=== PATIENT | female | born 1965 | race Two or more races ===

== ENCOUNTER 2016-12-01 09:16 | Outpatient (CLI) | payer OTHER ==
[2016-12-01 10:15] LABS: URINE BILIRUBIN NEGATIVE (NEGATIVE); URINE BLOOD NEGATIVE (NEGATIVE); URINE COLOR YELLOW; URINE GLUCOSE (UA) NEGATIVE (NEGATIVE); URINE KETONE NEGATIVE (NEGATIVE); URINE PH 7.5; URINE PROTEIN NEGATIVE (NEGATIVE); URINE UROBILINOGEN 0.2 E.U./dL (0.2 - 1.0)
[2016-12-01 10:17] LABS: URINE BACTERIA NONE SEEN /hpf (NONE SEEN); URINE EPITHELIAL CELLS RARE /lpf (FEW); URINE RBC NONE SEEN /hpf (0-5); URINE WBC NONE SEEN /hpf (0-5)
[2016-12-01] MEDS ORDERED: IOHEXOL 300MG/ML 100 ML VIAL IVP ONE (10:23)
[2016-12-01 10:25] LABS: % BASOPHILS 0.4 % (0.0-2.0); % EOSINOPHILS 2.4 % (0.0-5.0); % LYMPHOCYTES 32.9 % (20.0-50.0); % MONOCYTES 7.9 % (2.0-10.0); % NEUTROPHILS 56.4 % (40.0-80.0); HEMATOCRIT 42.2 % (35.0-45.0); HEMOGLOBIN 13.6 gm/dL (11.7-15.5); MEAN CELL VOLUME 73.8 fl (81-100); MEAN CORPUSCULAR HEMOGLOBIN 23.7 pg (27.0-31.0); MEAN CORPUSCULAR HGB CONC 32.1 pg (28.0-36.0); MEAN PLATELET VOLUME 9.3 fl; NEUTROPHILE ABSOLUTE 3.8 Th/cmm (1.8-8.0); PLATELET COUNT 312 Th/cmm (150-400); RED BLOOD COUNT 5.72 Mil/cmm (3.80-5.10); RED CELL DISTRIBUTION WIDTH 13.4 % (11.5-20.0); WHITE BLOOD COUNT 6.7 Th/cmm (4.8-10.8)
[2016-12-01 10:52] LABS: ALB/GLOB RATIO 1.3 (1.0-1.8); ALKALINE PHOSPHATASE 104 U/L (34-104); ANION GAP 7.4 (7.0-16.0); BILIRUBIN,TOTAL 0.5 mg/dL (0.3-1.0); BUN - UREA NITROGEN 8 mg/dL (7-25); BUN/CREATININE RATIO 13.3; CALCIUM SERUM 10.4 mg/dL (8.6-10.3); CARBON DIOXIDE 26.3 mEq/L (21.0-31.0); CHLORIDE 105 mEq/L (98-107); CHOLESTEROL 168 mg/dL (<200); CREATININE - SERUM 0.6 mg/dL (0.6-1.2); GLUCOSE 98 mg/dL (70-105); POTASSIUM SERUM 3.7 mEq/L (3.5-5.1); SGOT 22 U/L (13-39); SGPT/ALT 19 U/L (7-52); SODIUM SERUM 135 mEq/L (136-145); TRIGLYCERIDES 147 mg/dL (<150)
[2016-12-01 11:04] LABS: T4 TOTAL 10.04 ug/dl (6.09-12.23)
[2016-12-01 11:14] LABS: T3 (TRIIDOTHYRONNE) 1.22 ng/mL (0.87-1.78)
--- NOTE | 2016-12-01 11:42 | Diagnostic Imaging Report ---
CT abdomen and pelvis without and with intravenous contrast Indication: Abdominal pain radiating to the back Comparison: None, Technique: Axial images were obtained from the lung bases to the bilateral proximal femurs before and following administration of IV contrast. Coronal reconstructions were made. total DLP: 869, CTDI 16.6 FINDINGS: Hypoventilatory changes of the lung bases are noted. No evidence of focal hepatic lesions. Borderline prominent liver is noted. No radiopaque gallstones identified. No focal splenic, pancreatic, or adrenal lesions. No evidence of hydronephrosis or nephrolithiasis. No focal renal lesions identified. There is moderate amount of stool throughout the colon. No evidence of acute appendicitis. 1.3 cm right adnexal cyst is noted. No evidence of free fluid or free air. Mild atherosclerosis is noted. Mild degenerative changes of the spine are noted. IMPRESSION: No evidence of hydronephrosis or nephrolithiasis. No evidence of free fluid. No evidence of bowel obstruction. 1.3 cm right adnexal cyst. Consider follow-up ultrasound if indicated. Borderline prominent liver. Mild atherosclerosis.
--- NOTE | 2016-12-01 11:43 | Diagnostic Imaging Report ---
Ultrasound abdomen HISTORY: Renal stone COMPARISON: CT abdomen and pelvis the same day Technique: Sonography of the abdomen was performed in multiple planes. FINDINGS: The liver demonstrates mild increased echogenicity with no evidence of focal lesions. The liver measures 17.4 cm. No evidence of gallstones or gallbladder wall thickening. The common bile duct measures 5 mm. Evaluation of the pancreas is limited due to bowel gas. The right kidney measures 11.5 cm. No evidence of focal lesions or hydronephrosis. The left kidney measures 11.2 cm. There is fullness of the left renal collecting system without evidence of wale hydronephrosis. No evidence of focal lesions. The spleen measures 8.7 cm. IMPRESSION: Fullness of the left renal collecting system without evidence of wale hydronephrosis. No evidence of renal stones. Please refer to follow-up CT the same day for further details. Borderline prominent liver with mild increased echogenicity which may be due to fatty infiltration, correlate with clinical findings.
--- NOTE | 2016-12-01 13:34 | Diagnostic Imaging Report ---
Ultrasound pelvis HISTORY: Pain. History of right ovarian cyst. Patient is postmenopausal. COMPARISON: CT abdomen and pelvis the same day Technique: Longitudinal and transverse sonographic sector images of the pelvis were obtained transabdominally and transvaginally. FINDINGS: Exam is limited due to bowel gas. The uterus measures 7.1 x 2.9 x 4.3 cm. The endometrium measures 5 mm. The ovaries were not visualized. The prior stated small right adnexal cyst described on recent CT examination was not identified sonographically. The post void residual bladder volume is 62 mL. IMPRESSION: The endometrium measures 5 mm. Clinical correlation of this finding is recommended given patient's postmenopausal status. The ovaries were not visualized. The postsurgical residual bladder volume is slightly elevated at 62 mL's. Please correlate with clinical findings.
[2016-12-03 18:09] LABS: ANTI DNA AB QN < 1 IU/mL (0-9); ANTICHROMATIN ANTIBODIES < 0.2 AI (0.0-0.9); SJOGREN ANTI SS A < 0.2 AI (0.0-0.9); SJOGREN ANTI SS B < 0.2 AI (0.0-0.9)
== END 2016-12-01 14:17 | disposition home or self-care (01) ==
LOC: RAD 09:16
PROVIDERS: ATTEND Internal Medicine
DX: N83.8 Other noninflammatory disorders of ovary, fallopian tube and broad ligament (principal)
CPT/HCPCS: 36415-UA; 76700-TC; 76856-TC; 80053-TC; 80061-TC; 81001-TC; 83036-90; 84436-TC; 84443-TC; 84479-TC; 85025-TC; 85652-TC; 87086-90; Q9967